=== PATIENT | female | born 1965 | race Caucasian/White ===

== ENCOUNTER 2017-09-03 04:49 | Emergency (ER) | payer OTHER ==
[2011-02-08 18:21] VITALS: BMI 28.1
[2017-09-03 05:26] LABS: BASOPHILS 0.6 % (0-2); EOSINOPHILS 2.7 % (0-7); HEMOGLOBIN 14.1 g/dL (12-16); IMMATURE GRANULOCYTES 0.3 % (0-5); LYMPHOCYTES 23.5 % (15-50); MCH 31.4 pg (26.0-34.0); MCHC 33.6 g/dL (31.0-37.0); MCV 93.5 fL (80.0-100.0); MEAN PLATELET VOLUME 10.6 fL (7.4-10.4); MONOCYTES 10.8 % (2-11); NEUTROPHILS 62.1 % (40-80); PLATELET COUNT 268 10x3/uL (130-400); RBC 4.49 10x6/uL (4.00-5.40); RDW 12.5 % (11.5-14.5); WBC 6.6 10x3/uL (4.8-10.8)
[2017-09-03 05:41] LABS: ALBUMIN 3.9 g/dL (3.4-5.0); ALKALINE PHOSPHATASE 33 U/L (46-116); ALT (SGPT) 18 U/L (10-68); BILIRUBIN - TOTAL 1.34 mg/dL (0.2-1.3); CALC OSMOLALITY 278 mosm/kg (275-300); CALCIUM 9.5 mg/dL (8.5-10.1); CARBON DIOXIDE 27.8 mmol/L (21.0-32.0); CHLORIDE - SERUM 102 mmol/L (98-107); CREATININE - SERUM 0.7 mg/dL (0.6-1.3); GLUCOSE 109 mg/dL (74-106); POTASSIUM - SERUM 3.5 mmol/L (3.5-5.1); PROTEIN - SERUM 7.5 g/dL (6.4-8.2); SODIUM 140 mmol/L (136-145); UREA NITROGEN 10 mg/dL (7-18); eGFR NON AFRICAN AMERICAN > 90 mL/min (90-120)
[2017-09-03 05:52] LABS: CHOL - HDL RATIO 3.7 ratio (2.3-4.1); CHOLESTEROL, TOTAL 208 mg/dL (0-200); CKMB 0.8 U/L (0.0-3.6); CREATINE KINASE 67 UL (21-215); HDL CHOLESTEROL 57 mg/dL (32-96); LDL CHOLESTEROL 128 mg/dL (0-100); LDL-HDL RATIO 2.2 ratio (1.5-3.5); MAGNESIUM - SERUM 2.4 mg/dL (1.8-2.4); TRIGLYCERIDE 116 mg/dL (30-200)
[2017-09-03 05:54] LABS: TROPONIN-I < 0.017 ng/mL (0.000-0.060)
== END 2017-09-03 06:28 | disposition home or self-care (01) ==
LOC: D.ER 04:49
PROVIDERS: Emergency Medicine
DX: R07.9 Chest pain, unspecified (principal); E03.9 Hypothyroidism, unspecified; I45.10 Unspecified right bundle-branch block

== ENCOUNTER 2017-09-26 01:38 | Emergency (ER) | payer OTHER ==
[2011-02-08 18:21] VITALS: BMI 28.1
[2017-09-26 02:38] LABS: BASOPHILS 0.4 % (0-2); EOSINOPHILS 1.2 % (0-7); HEMATOCRIT 40.6 % (36.0-48.0); IMMATURE GRANULOCYTES 0.1 % (0-5); LYMPHOCYTES 31.3 % (15-50); MCH 32.3 pg (26.0-34.0); MCHC 34.5 g/dL (31.0-37.0); MCV 93.8 fL (80.0-100.0); MEAN PLATELET VOLUME 10.5 fL (7.4-10.4); MONOCYTES 10.7 % (2-11); NEUTROPHILS 56.3 % (40-80); PLATELET COUNT 287 10x3/uL (130-400); RBC 4.33 10x6/uL (4.00-5.40); RDW 12.6 % (11.5-14.5); WBC 6.8 10x3/uL (4.8-10.8)
[2017-09-26 02:54] LABS: ALBUMIN 3.6 g/dL (3.4-5.0); ALKALINE PHOSPHATASE 33 U/L (46-116); ALT (SGPT) 19 U/L (10-68); CALC OSMOLALITY 278 mosm/kg (275-300); CHLORIDE - SERUM 106 mmol/L (98-107); CREATININE - SERUM 0.8 mg/dL (0.6-1.3); GLUCOSE 109 mg/dL (74-106); POTASSIUM - SERUM 3.4 mmol/L (3.5-5.1); PROTEIN - SERUM 6.8 g/dL (6.4-8.2); SODIUM 140 mmol/L (136-145); UREA NITROGEN 11 mg/dL (7-18); eGFR NON AFRICAN AMERICAN 79 mL/min (90-120)
[2017-09-26 02:55] LABS: UDS - AMPHET NEGATIVE QUAL (NEGATIVE); UDS - BARB POSITIVE QUAL (NEGATIVE); UDS - BENZO NEGATIVE QUAL (NEGATIVE); UDS - COCAINE NEGATIVE QUAL (NEGATIVE); UDS - OPIATE NEGATIVE QUAL (NEGATIVE); UDS - PCP NEGATIVE QUAL (NEGATIVE); UDS - THC NEGATIVE QUAL (NEGATIVE)
[2017-09-26 02:57] LABS: APPEARANCE HAZY (CLEAR); BILIRUBIN NEGATIVE (NEGATIVE); COLOR YELLOW (YELLOW); GLUCOSE NEGATIVE (NEGATIVE); KETONE NEGATIVE (NEGATIVE); NITRITE NEGATIVE (NEGATIVE); PROTEIN NEGATIVE (NEGATIVE); SPECIFIC GRAVITY 1.015 (1.005-1.020); UROBILINOGEN NORMAL (NORMAL)
[2017-09-26 02:58] LABS: EPITHELIAL CELLS 0-5 /hpf (0-5); RED CELLS - URINE 0-5 /hpf (0-5)
[2017-09-26 02:59] LABS: BACTERIA MODERATE /hpf (NONE SEEN); MUCUS <1+ /lpf (NONE SEEN)
[2017-09-26 03:06] LABS: CKMB 0.5 U/L (0.0-3.6); CREATINE KINASE 45 UL (21-215); MAGNESIUM - SERUM 2.1 mg/dL (1.8-2.4); THYROID STIMULATING HORMONE 2.08 uIU/mL (0.36-3.74); TROPONIN-I < 0.017 ng/mL (0.000-0.060)
== END 2017-09-26 03:50 | disposition home or self-care (01) ==
LOC: D.ER 01:38
PROVIDERS: Family Medicine
DX: F41.9 Anxiety disorder, unspecified (principal); N39.0 Urinary tract infection, site not specified; E03.9 Hypothyroidism, unspecified; Z85.820 Personal history of malignant melanoma of skin

== ENCOUNTER → 2017-11-09 13:52 | Outpatient (CLI) | payer OTHER ==
[2011-02-08 18:21] VITALS: BMI 28.1
== END | disposition home or self-care (01) ==
LOC: D.CT 13:52
DX: R10.9 Unspecified abdominal pain (principal)

== ENCOUNTER 2017-11-28 08:00 | Outpatient (CLI) | payer OTHER ==
[2011-02-08 18:21] VITALS: BMI 28.1
== END 2017-11-28 13:20 | disposition home or self-care (01) ==
LOC: D.MAMMO 08:00
DX: Z12.31 Encounter for screening mammogram for malignant neoplasm of breast (principal)

== ENCOUNTER → 2017-12-26 20:13 | Outpatient (CLI) | payer OTHER ==
[2011-02-08 18:21] VITALS: BMI 28.1
== END | disposition home or self-care (01) ==
LOC: D.MAMMO 09:30
DX: R92.8 Other abnormal and inconclusive findings on diagnostic imaging of breast (principal)

== ENCOUNTER → 2018-02-21 18:17 | Outpatient (CLI) | payer OTHER ==
[2011-02-08 18:21] VITALS: BMI 28.1
== END | disposition home or self-care (01) ==
LOC: D.LABREF 18:17
DX: R31.9 Hematuria, unspecified (principal); D72.829 Elevated white blood cell count, unspecified

== ENCOUNTER 2018-03-08 08:20 | Day surgery (SDC) | payer OTHER ==
[2018-03-07 14:52] LABS: BASOPHILS 0.7 % (0-2); EOSINOPHILS 1.1 % (0-7); HEMATOCRIT 40.9 % (36.0-48.0); HEMOGLOBIN 13.8 g/dL (12-16); IMMATURE GRANULOCYTES 0.1 % (0-5); LYMPHOCYTES 26.1 % (15-50); MCH 32.4 pg (26.0-34.0); MCHC 33.7 g/dL (31.0-37.0); MEAN PLATELET VOLUME 10.9 fL (7.4-10.4); MONOCYTES 8.5 % (2-11); NEUTROPHILS 63.5 % (40-80); PLATELET COUNT 236 10x3/uL (130-400); RBC 4.26 10x6/uL (4.00-5.40); WBC 7.2 10x3/uL (4.8-10.8)
[2018-03-07 15:18] LABS: APTT 25.8 SECONDS (22.8-39.4); INR 0.93 (0.85-1.17); PROTIME 12.1 SECONDS (11.6-15.0)
[~2018-03-08] VITALS: Ht 170.2 cm; Wt 66.2 kg
--- NOTE | ~2018-03-08 | OP ---
PATIENT NAME: ROSIE LOPEZ MEDICAL RECORD: [id number] :61 LOCATION:.[facility] ADMISSION DATE: SURGEON: THAI RODRÍGUEZ MD DATE OF OPERATION: 03/08/2018 SURGEON: Thai Rodríguez MD DIAGNOSES: Microscopic hematuria, interstitial cystitis. PROCEDURES: Cystoscopy and intravesical Rimso 50 instillation. FINDINGS: Single ureteral orifices bilaterally. No bladder tumors. Diffuse bladder inflammation. BLOOD LOSS: None. CLINICAL HISTORY: This is a 52-year-old female, who is being investigated for microscopic hematuria. She had a CT scan of the abdomen and pelvis, which was normal. Urine cytology is normal. She comes today for a cystoscopy to complete the hematuria workup. She is also complaining of nocturia times 2 and ongoing vaginal burning. She has symptoms suggestive of interstitial cystitis and therefore, we will also treat her with intravesical Rimso if she has bladder inflammation. She is allergic to GLUTEN, PEANUTS, SHRIMP, CIPRO, and MACROBID. 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 DESCRIPTION OF PROCEDURE: The patient was given IV sedation. She was placed in dorsal lithotomy position. Cystoscopy was performed using a 17-Z[place]ian cystoscope with 30-degree lens. Findings are as outlined above. The bladder was then emptied through the cystoscope sheath. A 16-Z[place]ian red rubber catheter was inserted into the bladder and the 50 mL of Rimso solution was instilled into the bladder. The catheter was removed, leaving the liquid in the bladder. The patient will hold the fluid for 15 minutes and then void it out. TRANSINT:[id number] Voice Confirmation ID: [id number] DOCUMENT ID: [id number] THAI RODRÍGUEZ MD at 1531 CC: [id number] DICTATION DATE: 03/08/18 1458 RECREATION OFFICER: 03/08/18 1503 [facility] [address] [place] [address]
[~2018-03-08 08:20] MED LIST: ATIVAN0.5 MG PO; CENTRUM SILVER1 EAC3 PO; LEVOTHYROXINE125 MCG PO; LISINOPRIL5 MG PO; MELATONIN 3 MG1 TAB PO; PAROXETINE HCL10 MG PO; PROBIOTIC BLEN1 EACH
[2018-03-08 08:59] VITALS: BP 138/81; Ht 170.2 cm; Wt 66.2 kg
== END 2018-03-08 16:50 | disposition home or self-care (01) ==
LOC: D.OPS 08:20 → D.PAN 10:15 → D.OPS 10:15
PROVIDERS: Anesthesiology
DX: N30.11 Interstitial cystitis (chronic) with hematuria (principal); R31.29 Other microscopic hematuria; Z88.1 Allergy status to other antibiotic agents; Z91.010 Allergy to peanuts; Z91.013 Allergy to seafood; Z01.812 Encounter for preprocedural laboratory examination

== ENCOUNTER → 2018-03-20 18:44 | Outpatient (CLI) | payer OTHER ==
[2018-03-08 08:59] VITALS: BMI 22.9
== END | disposition home or self-care (01) ==
LOC: D.LABREF 18:44
DX: R31.9 Hematuria, unspecified (principal); D72.829 Elevated white blood cell count, unspecified

== ENCOUNTER → 2018-04-03 17:33 | Outpatient (CLI) | payer OTHER ==
[2018-03-08 08:59] VITALS: BMI 22.9
== END | disposition home or self-care (01) ==
LOC: D.LABREF 17:33
DX: N39.0 Urinary tract infection, site not specified (principal)